=== PATIENT | female | born 1970 | race Caucasian/White ===

== ENCOUNTER 2020-09-21 00:02 | Emergency (ER) | payer MEDICARE, OTHER ==
[~2020-09-21 00:02] MED LIST: IBU800 MG PO; ROBAXIN-750750 MG PO
[2020-09-21 02:41] LABS: HEMOGLOBIN 10.2 gm/dl (12.3-15.3); RED BLOOD COUNT 3.36 M/UL (4.00-5.10); WHITE BLOOD COUNT 5.8 K/UL (4.5-11.0)
[2020-09-21 03:03] LABS: BUN/CREATININE RATIO 13 (0-10)
== END 2020-09-21 03:59 | disposition home or self-care (01) ==
LOC: ER1 00:02
PROVIDERS: Emergency Medicine
DX: R07.89 Other chest pain (principal); R06.02 Shortness of breath; Z90.89 Acquired absence of other organs; Z90.710 Acquired absence of both cervix and uterus; F17.210 Nicotine dependence, cigarettes, uncomplicated; Z88.8 Allergy status to other drugs, medicaments and biological substances
CPT/HCPCS: 71045; 80053; 82550; 82553; 83874; 83880; 84484; 85025; 85610; 93005; 96374; 96375; 99285; J2270; J2405; Q9967

== ENCOUNTER → 2020-10-07 | Outpatient (CLI) | payer MEDICARE, OTHER | LOC: EXRD 15:01 | DX: Z48.813 Encounter for surgical aftercare following surgery on the respiratory system (principal); Z90.2 Acquired absence of lung [part of]; Z85.118 Personal history of other malignant neoplasm of bronchus and lung | CPT/HCPCS: 71046 ==

== ENCOUNTER 2020-11-04 03:55 | Emergency (ER) | payer MEDICARE, OTHER | END 2020-11-04 07:00 | disposition home or self-care (01) | LOC: ER1 03:55 | DX: L98.9 Disorder of the skin and subcutaneous tissue, unspecified (principal) | CPT/HCPCS: 99282 ==

== ENCOUNTER 2021-03-04 17:18 | Emergency (ER) | payer OTHER | END 2021-03-04 20:30 | disposition left against medical advice (07) | LOC: ER1 17:18 | DX: R51.9 Headache, unspecified (principal); Z85.118 Personal history of other malignant neoplasm of bronchus and lung | CPT/HCPCS: 99283 ==

== ENCOUNTER 2021-03-08 13:24 | Emergency (ER) | payer OTHER ==
[2021-03-08 16:59] LABS: HEMOGLOBIN 16.7 gm/dl (12.3-15.3); RED BLOOD COUNT 5.72 M/UL (4.00-5.10); WHITE BLOOD COUNT 11.2 K/UL (4.5-11.0)
== END 2021-03-08 17:14 | disposition short-term general hospital (02) ==
LOC: ER1 13:24
PROVIDERS: Physician Assistant
DX: G93.89 Other specified disorders of brain (principal); I10 Essential (primary) hypertension; Z85.118 Personal history of other malignant neoplasm of bronchus and lung; Z20.822 Contact with and (suspected) exposure to COVID-19
CPT/HCPCS: 70450; 85025; 96374; 96375; 99285; J1100; J1170; J2270; J2405; U0002